=== PATIENT | male | born 1995 | race Caucasian/White ===

== ENCOUNTER 2016-06-24 13:28 | Emergency (ER) | payer OTHER ==
--- NOTE | 2016-06-24 14:18 | ED ---
General Adult HPI - General Chief complaint: GI Bleed Stated complaint: blood in stool-sent by Time Seen by Provider: 06/24/16 13:56 Source: patient, family, RN notes reviewed, old records reviewed Mode of arrival: ambulatory Limitations: no limitations - History of Present Illness Initial comments: Chief complaint and history of present illness this is a 20-year-old male here with his mother. Patient reports that after having a bowel movement he noticed was blood on the toilet paper. When asked she does report that a bowel movement before was somewhat uncomfortable. He's never had hemorrhoids or fissures in the past. He has had gastric ulcers 2 years ago cured with PPIs. For the past month every other day during the week he has had to take several Tums which relieved his GERD type symptoms. Not noticed any change in stool color. - Related Data Home Medications Medication Instructions Recorded Confirmed Albuterol Inhaler [Ventolin Hfa 2 puff INHALATION RT-Q4H PRN 02/23/14 06/24/16 Inhaler] Cetirizine HCl [Zyrtec] 10 mg PO DAILY 02/23/14 06/24/16 Montelukast [Singulair] 10 mg PO DAILY 02/23/14 06/24/16 Echinacea 400 mg PO DAILY 06/24/16 06/24/16 Gabapentin [Neurontin] 300 mg PO HS 06/24/16 06/24/16 Previous Rx's Medication Instructions Recorded Famotidine [Pepcid] 20 mg PO DAILY #30 tablet 06/24/16 Allergies Allergy/AdvReac Type Severity Reaction Status Date / Time No Known Allergies Allergy Verified 06/24/16 14:23 Review of Systems ROS Statement: Those systems with pertinent positive or pertinent negative responses have been documented in the HPI. Review of systems. No visual acuity changes or headache no stiff neck or chest pain no shortness of breath no complaints or problems. No scleral problems. No neuro deficits. Chief complaint today is noticing blood on the toilet paper after he wiped. He wiped several times and each time there is little bit of blood. All systems were otherwise reviewed. Past medical problems significant for asthma, GERD,. Surgeries tonsils and adenoids, appendectomy and cholecystectomy. The patient's lost a large amount of weight over the past year or more. States combination of low working harder in eating properly. Patient's family heart disease. No cancers. ALLERGIES none. Patient smokes occasional cigarettes encouraged to stop. Denies alcohol use ROS Other: All systems not noted in ROS Statement are negative. Past Medical History Past Medical History: Asthma, GERD/Reflux Additional Past Medical History / Comment(s): ABDOMINAL PAIN, HX OF 60LB WT LOSS History of Any Multi-Drug Resistant Organisms: None Reported Past Surgical History: Adenoidectomy, Appendectomy, Cholecystectomy, Tonsillectomy Past Anesthesia/Blood Transfusion Reactions: No Reported Reaction Past Psychological History: No Psychological Hx Reported Smoking Status: Light tobacco smoker Past Alcohol Use History: None Reported Past Drug Use History: None Reported - Past Family History Father Family Medical History: Myocardial Infarction ([place]) General Exam - General Exam Comments Initial Comments: General: The patient is awake and alert, in no distress, and does not appear acutely ill. Chief complaint of noticing blood on the toilet paper after he wiped. Vital signs show temperature 97.8 pulse 77 respiratory rate 16, pulse ox 99% room air blood pressure 125/69. Mildly elevated systolic noted. The patient is in emergency room under mild stress. Eye: Pupils are equal, round and reactive to light, extra-ocular movements are intact ; there is normal conjunctiva bilaterally. No signs of icterus. Ears, nose, mouth and throat: There are moist mucous membranes and no oral lesions. Neck: The neck is supple, there is no tenderness , no anterior cervical lymphadenopathy. Cardiovascular: There is a regular rate and rhythm. No murmur, rub or gallop is appreciated. Respiratory: Lungs are clear to auscultation, respirations are non-labored, breath sounds are equal. No wheezes, stridor, rales, or rhonchi. Gastrointestinal: Soft, non-distended, non-tender abdomen without masses or organomegaly noted. There is no rebound or guarding present. No CVA tenderness. Bowel sounds are unremarkable. Rectal examination done possible small internal hemorrhoid. Possible small fissure appreciated but difficult to assess. Rectal exam no masses palpable within the length of the digital exam. Stool color brown. Bedside guaiac negative. Back: There is no tenderness to palpation in the midline. There is no obvious deformity. No rashes noted. Musculoskeletal: Normal ROM, no tenderness, There is no calf tenderness or swelling. Neurological: No evidence of a neurological deficit or complaints thereof. Skin: Skin is warm and dry and no rashes or lesions are noted. Limitations: no limitations Course Vital Signs 06/24/16 13:36 Temperature 97.8 F Pulse Rate 77 Respiratory 16 Rate Blood Pressure 125/69 O2 Sat by Pulse 99 Oximetry Medical Decision Making - Medical Decision Making Medical decision-making the patient's white count 6.7 hemoglobin 14 hematocrit of 43. Potassium is 3.8 with a BUN 14 creatinine 0.70 with a GFR greater than 60. Glucose 74. Occult blood negative. I discussed with the patient possibility of a small hemorrhoid bleeding or a fissure. Patient be referred back to his family physician and Dr. Roberson his board saw runner for the evaluation. Loop of the fact the patient is having recurrent GERD type symptoms he will be placed on Pepcid daily for the next 6 weeks. If he has increased bleeding his return emergency room otherwise follow- up with the board saw runner. - Lab Data Result diagrams: 06/24/16 14:34 06/24/16 14:34 Lab Results 06/24/16 06/24/16 06/24/16 Range/Units 14:00 14:34 14:34 WBC 6.7 (4.0-11.0) k/uL RBC 4.93 (4.30-5.90) m/uL Hgb 14.3 (13.0-17.5) gm/dL Hct 43.4 (39.0-53.0) % MCV 88.0 (80.0-100.0) fL MCH 28.9 (25.0-35.0) pg MCHC 32.9 (31.0-37.0) g/dL RDW 13.1 (11.5-15.5) % Plt Count 259 (150-450) k/uL Neutrophils % 50 % Lymphocytes % 36 % Monocytes % 4 % Eosinophils % 8 % Basophils % 1 % Neutrophils # 3.4 (1.3-7.7) k/uL Lymphocytes # 2.4 (1.0-4.8) k/uL Monocytes # 0.3 (0-1.0) k/uL Eosinophils # 0.5 (0-0.7) k/uL Basophils # 0.0 (0-0.2) k/uL Sodium 142 (137-145) mmol/L Potassium 3.8 (3.5-5.1) mmol/L Chloride 104 (98-107) mmol/L Carbon Dioxide 28 (22-30) mmol/L Anion Gap 10 mmol/L BUN 14 (9-20) mg/dL Creatinine 0.72 (0.66-1.25) mg/dL Est GFR (MDRD) Af Amer >60 (>60 ml/min/1.73 sqM) Est GFR (MDRD) Non-Af >60 (>60 ml/min/1.73 sqM) Glucose 74 (74-99) mg/dL Calcium 9.5 (8.4-10.2) mg/dL Total Bilirubin 0.5 (0.2-1.3) mg/dL AST 20 (17-59) U/L ALT 33 (21-72) U/L Alkaline Phosphatase 57 (38-126) U/L Total Protein 7.1 (6.3-8.2) g/dL Albumin 4.3 (3.5-5.0) g/dL Stool Occult Blood Negative (Negative) Disposition Clinical Impression: Fissure, anal Disposition: HOME SELF-CARE Condition: Fair Instructions: Anal Fissure (ED) Additional Instructions: Use hemorrhoidal creams while waiting to see her family doctor and board saw runner. Increase water intake. Prescriptions: Famotidine [Pepcid] 20 mg PO DAILY #30 tablet Time of Disposition: 15:29
[2016-06-24 14:53] LABS: Basophils % (A) 1 %; CH 29.1; CHCM 33.3; Eosinophils # (A) 0.5 k/uL (0-0.7); Eosinophils % (A) 8 %; HCT 43.4 % (39.0-53.0); HDW 2.44; HGB 14.3 gm/dL (13.0-17.5); Luc # (Auto) 0.12; Luc % (Auto) 2; Lymphocytes # (A) 2.4 k/uL (1.0-4.8); Lymphocytes % (A) 36 %; MCH 28.9 pg (25.0-35.0); MCHC 32.9 g/dL (31.0-37.0); Mean Platelet Volume 6.6; Monocytes # (A) 0.3 k/uL (0-1.0); Monocytes % (A) 4 %; Neutrophils # (A) 3.4 k/uL (1.3-7.7); Neutrophils % (A) 50 %; RBC 4.93 m/uL (4.30-5.90); RDW 13.1 % (11.5-15.5); WBC 6.7 k/uL (4.0-11.0); WBC (Perox) 6.84
[2016-06-24 14:56] LABS: ALT 33 U/L (21-72); AST 20 U/L (17-59); Alkaline Phosphatase 57 U/L (38-126); Anion Gap 10 mmol/L; Blood Urea Nitrogen 14 mg/dL (9-20); Calcium 9.5 mg/dL (8.4-10.2); Carbon Dioxide 28 mmol/L (22-30); Chloride 104 mmol/L (98-107); Glucose 74 mg/dL (74-99); Non-African American GFR(MDRD) >60 (>60 ml/min/1.73 sqM); Potassium 3.8 mmol/L (3.5-5.1); Sodium 142 mmol/L (137-145); Total Bilirubin 0.5 mg/dL (0.2-1.3); Total Protein 7.1 g/dL (6.3-8.2)
[2016-06-24 15:49] VITALS: BP 147/78; PULSE 92; RESP 18; TEMP 97.4
== END 2016-06-24 15:49 | disposition home or self-care (01) ==
LOC: EC 13:28
DX: K60.2 Anal fissure, unspecified (principal); J45.909 Unspecified asthma, uncomplicated; F17.210 Nicotine dependence, cigarettes, uncomplicated; Z79.899 Other long term (current) drug therapy
CPT/HCPCS: 36415; 80053; 82272; 85025; 99284

== ENCOUNTER → 2016-12-02 | Outpatient (CLI) | payer OTHER ==
--- NOTE | 2016-12-02 17:21 | XR ---
EXAMINATION TYPE: XR hand complete RT DATE OF EXAM: 12/02/2016 COMPARISON: 09/17/2013 HISTORY: Pain after punching a wall TECHNIQUE: 3 views FINDINGS: There is a transverse fracture of the neck of the fifth metacarpal head with some mild post erior angulation at the fracture site. There is no dislocation. IMPRESSION: Acute slightly angulated fracture of the distal fifth metacarpal.
== END ==
LOC: RADXRMAIN 16:39
PROVIDERS: ATTEND Pediatrics
DX: S62.336A Displaced fracture of neck of fifth metacarpal bone, right hand, initial encounter for closed fracture (principal)

== ENCOUNTER 2019-06-19 06:42 | Emergency (ER) | payer OTHER ==
[2019-06-19 07:01] VITALS: BP 129/81; PULSE 78; RESP 16; TEMP 97.9
[2019-06-19] MEDS ORDERED: IBUPROFEN 600 MG TAB PO STA (07:10)
[2019-06-19] MEDS ORDERED: CYCLOBENZAPRINE 10 MG TAB PO STA (07:10)
[2019-06-19] MEDS ORDERED: ACET/COD 300 MG/30 MG STARTER PACK 6 TAB BTL PO STA (07:11)
--- NOTE | 2019-06-19 07:11 | ED ---
Back Pain HPI - General Chief Complaint: Back Pain/Injury Stated Complaint: [facility] Back Pain Time Seen by Provider: 06/19/19 06:56 Source: patient, RN notes reviewed Limitations: no limitations - History of Present Illness Initial Comments: This a 23-year-old male presents emergency Department with chief complaint of mid to low back pain. Patient states that he was lifting a box approximately 4050 pounds in weight states he twisted to left knee has mid to right-sided back pain. Patient states he did inject this in the past in which she had a muscular strain. Patient states feels very similar. He denies any bowel, bladder and Kienitz retention. Denies any lower extremity paresthesias, pain or saddle anesthesias. He has no dysuria no nausea vomiting. Patient did take Tylenol prior arrival. - Related Data Home Medications Medication Instructions Recorded Confirmed Albuterol Inhaler [Ventolin Hfa 2 puff INHALATION RT-Q4H PRN 02/23/14 06/24/16 Inhaler] Cetirizine HCl [Zyrtec] 10 mg PO DAILY 02/23/14 06/24/16 Montelukast [Singulair] 10 mg PO DAILY 02/23/14 06/24/16 Echinacea 400 mg PO DAILY 06/24/16 06/24/16 Gabapentin [Neurontin] 300 mg PO HS 06/24/16 06/24/16 Previous Rx's Medication Instructions Recorded Famotidine [Pepcid] 20 mg PO DAILY #30 tablet 06/24/16 Cyclobenzaprine [Flexeril] 10 mg PO TID PRN #15 tab 06/19/19 Ibuprofen [Motrin] 600 mg PO Q8HR PRN #30 tab 06/19/19 Allergies Allergy/AdvReac Type Severity Reaction Status Date / Time No Known Allergies Allergy Verified 06/19/19 07:00 Review of Systems ROS Statement: Those systems with pertinent positive or pertinent negative responses have been documented in the HPI. ROS Other: All systems not noted in ROS Statement are negative. Past Medical History Past Medical History: Asthma, GERD/Reflux Additional Past Medical History / Comment(s): ABDOMINAL PAIN, HX OF 60LB WT LOSS History of Any Multi-Drug Resistant Organisms: None Reported Past Surgical History: Adenoidectomy, Appendectomy, Cholecystectomy, Tonsillectomy Past Anesthesia/Blood Transfusion Reactions: No Reported Reaction Past Psychological History: No Psychological Hx Reported Smoking Status: Current every day smoker Past Alcohol Use History: None Reported Past Drug Use History: None Reported - Past Family History Father Family Medical History: Myocardial Infarction ([place]) General Exam Limitations: no limitations General appearance: alert, in no apparent distress Head exam: Present: atraumatic, normocephalic, normal inspection Eye exam: Present: normal appearance, PERRL, EOMI. Absent: scleral icterus, conjunctival injection, periorbital swelling ENT exam: Present: normal exam, normal oropharynx, mucous membranes moist Neck exam: Present: normal inspection, full ROM. Absent: tenderness, meningismus, lymphadenopathy Respiratory exam: Present: normal lung sounds bilaterally. Absent: respiratory distress, wheezes, rales, rhonchi, stridor Cardiovascular Exam: Present: regular rate, normal rhythm, normal heart sounds. Absent: systolic murmur, diastolic murmur, rubs, gallop, clicks GI/Abdominal exam: Present: soft, normal bowel sounds. Absent: distended, tenderness, guarding, rebound, rigid Extremities exam: Present: normal inspection, full ROM, normal capillary refill, other (Lower extremity strength equal bilaterally, equal color and equal warmth). Absent: tenderness, pedal edema, joint swelling, calf tenderness Back exam: Present: full ROM (Pain with range of motion), tenderness, paraspinal tenderness. Absent: vertebral tenderness Neurological exam: Present: reflexes normal. Absent: motor sensory deficit Course Vital Signs 06/19/19 06:56 Temperature 97.9 F Pulse Rate 78 Respiratory 16 Rate Blood Pressure 129/81 O2 Sat by Pulse 98 Oximetry Medical Decision Making - Medical Decision Making Patient's has no red flag symptoms, patient has a thoracic/lumbar strain. Patient will follow up with [facility]. Patient is discharged in stable condition return parameters were discussed. Disposition Clinical Impression: Mechanical back pain, Back strain Disposition: HOME SELF-CARE Condition: Stable Instructions (If sedation given, give patient instructions): Acute Low Back Pain (ED) Additional Instructions: Please return to the Emergency Department if symptoms worsen or any other concerns. Prescriptions: Cyclobenzaprine [Flexeril] 10 mg PO TID PRN #15 tab PRN Reason: Muscle Spasm Ibuprofen [Motrin] 600 mg PO Q8HR PRN #30 tab PRN Reason: Pain Is patient prescribed a controlled substance at d/c from ED?: No Referrals: Lincoln Champagne MD [Primary Care Provider] - 1-2 days Time of Disposition: 07:11
== END 2019-06-19 07:30 | disposition home or self-care (01) ==
LOC: EC 06:42
DX: S39.012A Strain of muscle, fascia and tendon of lower back, initial encounter (principal); S29.012A Strain of muscle and tendon of back wall of thorax, initial encounter; J45.909 Unspecified asthma, uncomplicated; F17.200 Nicotine dependence, unspecified, uncomplicated; Z79.899 Other long term (current) drug therapy; X50.0XXA Overexertion from strenuous movement or load, initial encounter; Y92.69 Other specified industrial and construction area as the place of occurrence of the external cause; Y99.0 Civilian activity done for income or pay
CPT/HCPCS: 99283

== ENCOUNTER 2020-05-17 10:29 | Emergency (ER) | payer OTHER ==
[2020-05-17 10:41] VITALS: BP 136/87; PULSE 84; RESP 18; TEMP 98.5
--- NOTE | 2020-05-17 11:43 | CT ---
EXAMINATION TYPE: CT brain kat wo con DATE OF EXAM: 05/17/2020 COMPARISON: None HISTORY: fall down stairs, nose contusion, headache, dizziness CT DLP: 1321.7 mGycm, Automated exposure control for dose reduction was used. CONTRAST: Patient injected with 0 mL of Isovue 300. CT of the brain is performed utilizing 3 mm thick sections through the posterior fossa and 3 mm thick sections through the remaining calvarium. Study is performed within 24 hours of arrival to the hospital. No abnormal hyperdensity is present to suggest an acute intracranial hemorrhage. No mass lesion is evident. No acute infarcts are evident. Ventricles and sulci are appropriate for the patient age. Paranasal sinuses and mastoid air cells within the [id number] are clear. IMPRESSIONS: 1. Normal CT brain. CT cervical spine. COMPARISON: None CT of the cervical spine is performed in the axial plane at 2 mm thick sections. Reconstructed image s in the coronal, and sagittal plane are reviewed on the computer. No acute fractures are evident. Vertebral body alignment is normal. Disc heights are preserved. Vertebral body heights are preserved. No spinal canal stenosis is evident. No neural foraminal stenosis is evident. IMPRESSIONS: 1. Normal CT cervical spine.
--- NOTE | 2020-05-17 11:45 | CT ---
EXAMINATION TYPE: CT facial bones wo con DATE OF EXAM: 05/17/2020 COMPARISON: None HISTORY: fall down stairs, nose contusion CT DLP: 805 mGycm Automated exposure control for dose reduction was used. TECHNIQUE: Axial images 2 mm thick sections. Reconstructed images in the coronal plane FINDINGS: Mandible and maxilla appear intact. Maxillary spine is intact. Paranasal sinuses within the field-of- view are clear. Greater wings of the sphenoid and zygomatic arches are intact. Left septal deviation and a left septal spur is noted. IMPRESSION: NO ACUTE OSSEOUS ABNORMALITY FACIAL BONES. SOME SOFT TISSUE SWELLING MAY BE OVER THE RIGHT CHEEK ALEAH ON.
[2020-05-17] MEDS ORDERED: ACET/COD 300 MG/30 MG STARTER PACK 6 TAB BTL PO STA (12:05)
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
== END 2020-05-17 12:15 | disposition home or self-care (01) ==
LOC: EC 10:29
DX: S06.0X9A Concussion with loss of consciousness of unspecified duration, initial encounter (principal); S00.83XA Contusion of other part of head, initial encounter; J34.0 Abscess, furuncle and carbuncle of nose; J45.909 Unspecified asthma, uncomplicated; Z79.899 Other long term (current) drug therapy; Z87.891 Personal history of nicotine dependence; W10.9XXA Fall (on) (from) unspecified stairs and steps, initial encounter; Y92.009 Unspecified place in unspecified non-institutional (private) residence as the place of occurrence of the external cause
CPT/HCPCS: 70450; 70486; 72125; 99283

== ENCOUNTER 2020-05-18 20:51 | Inpatient (IN) | payer OTHER ==
[2020-05-18] MEDS ORDERED: KETOROLAC 15 MG/ML 1 ML VIAL IVP STA (21:33)
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
[2020-05-18] MEDS ORDERED: ONDANSETRON 4 MG/2 ML VIAL IVP STA (21:44)
[2020-05-18 22:17] LABS: Basophils % (A) 0 %; Eosinophils # (A) 0.4 k/uL (0-0.7); Eosinophils % (A) 3 %; HCT 46.5 % (39.0-53.0); HGB 15.4 gm/dL (13.0-17.5); Lymphocytes # (A) 1.4 k/uL (1.0-4.8); Lymphocytes % (A) 10 %; MCH 29.8 pg (25.0-35.0); MCHC 33.1 g/dL (31.0-37.0); MCV 90.2 fL (80.0-100.0); Mean Platelet Volume 7.9; Monocytes # (A) 0.9 k/uL (0-1.0); Monocytes % (A) 6 %; Neutrophils # (A) 11.3 k/uL (1.3-7.7); Neutrophils % (A) 80 %; Platelet Count 294 k/uL (150-450); RBC 5.16 m/uL (4.30-5.90); RDW 13.3 % (11.5-15.5); WBC 14.1 k/uL (3.8-10.6)
[2020-05-18 22:29] LABS: ALT 23 U/L (4-49); AST 19 U/L (17-59); African American GFR (CKD) >90 (>60 ml/min/1.73 sqM); Alkaline Phosphatase 89 U/L (38-126); Anion Gap 9 mmol/L; Blood Urea Nitrogen 9 mg/dL (9-20); C Reactive Protein 54.5 mg/L (<10.0); Calcium 9.3 mg/dL (8.4-10.2); Carbon Dioxide 23 mmol/L (22-30); Chloride 104 mmol/L (98-107); Glucose 108 mg/dL (74-99); Non-African American GFR(CKD) >90 (>60 ml/min/1.73 sqM); Potassium 3.7 mmol/L (3.5-5.1); Sodium 136 mmol/L (137-145); Total Bilirubin 0.5 mg/dL (0.2-1.3)
[2020-05-18] MEDS ORDERED: RX INFO: IV CONTRAST WAS GIVEN 1 EACH MISC MISCELLANE PRN (23:02)
[2020-05-18 23:14] LABS: Erythrocyte Sedimentation Rate 11 mm/hr (0-15)
--- NOTE | 2020-05-18 23:42 | CT ---
EXAMINATION TYPE: CT brain w con DATE OF EXAM: 05/18/2020 COMPARISON: Yesterday HISTORY: Possible venous thrombosis. Headache. Pain and swelling. CT DLP: mGycm Automated exposure control for dose reduction was used. CONTRAST: The contrast was Isovue 100 mL. FINDINGS: Ventricles and sulci appear normal. There is no mass effect nor midline shift. There is no sign of in tracranial hemorrhage. There is normal enhancement of the venous sinuses. There is no evidence of sin us thrombosis. There is no pathologic enhancement. Skull base is intact. There is contrast opacificat ion of the anterior middle and posterior cerebral arteries. There is arterial flow in the vertebrobas ilar artery system. There is no evidence of cerebral edema. IMPRESSION: Normal exam. No pathologic enhancement. No evidence of venous sinus thrombosis.
[2020-05-19] MEDS ORDERED: NALOXONE 0.4 MG/ML 1 ML VIAL IV PRN (00:01)
[2020-05-19] MEDS ORDERED: MORPHINE SULFATE 4 MG/ML SYRINGE IV PRN (00:01)
[2020-05-19] MEDS ORDERED: VANCOMYCIN IV PER PHARMACY 1 EACH MISC MISCELLANE PRN (00:02)
[2020-05-19] MEDS ORDERED: VANCOMYCIN 2,000 MG in SODIUM CHLORIDE 0.9% 500 ML 500 ML IVPB ONE (01:00)
--- NOTE | 2020-05-19 01:09 | CT ---
EXAM: CT Thoracic Spine Without Intravenous Contrast CLINICAL HISTORY: ITS.REASON CT Reason: pain TECHNIQUE: Axial computed tomography images of the thoracic spine without intravenous contrast. CTDI is 24.97 mGy and DLP is 1125.2 mGy-cm. This CT exam was performed using one or more of the following dose reduction techniques: automated exposure control, adjustment of the mA and/or kV according to patient size, and/or use of iterative reconstruction technique. COMPARISON: No relevant prior studies available. FINDINGS: Vertebrae: Unremarkable. No acute fracture. Discs/spinal canal/neural foramina: No acute findings. No spinal canal stenosis. Soft tissues: Unremarkable. Lungs: Patchy small nodular and ground-glass opacities in the lungs bilaterally. IMPRESSION: 1. Patchy small nodular and ground-glass opacities in the lungs bilaterally concerning for infection, possibly viral pneumonia. 2. No acute fracture or subluxation..
[2020-05-19] MEDS: DEXAMETHASONE SOD PHOSPHATE 10 MG/ML 1 ML VIAL IV ONE ×2 (01:32→01:45)
[2020-05-19] MEDS ORDERED: MORPHINE SULFATE 4 MG/ML SYRINGE IVP PRN (01:49)
[2020-05-19] MEDS ORDERED: ONDANSETRON 4 MG/2 ML VIAL IVP PRN (01:49)
[2020-05-19] MEDS ORDERED: MORPHINE SULFATE 4 MG/ML SYRINGE IVP STA (01:49)
[2020-05-19] MEDS: IBUPROFEN 400 MG TAB PO PRN ×3 (02:03→16:22)
[2020-05-19] MEDS: VANCOMYCIN 1,750 MG in SODIUM CHLORIDE 0.9% 500 ML 500 ML IVPB SCH ×2 (11:33→18:51)
[2020-05-19] MEDS: MONTELUKAST 10 MG TAB PO SCH (12:06)
[2020-05-19] MEDS: LORATADINE 10 MG TAB PO SCH (12:06)
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
[2020-05-19] MEDS: BACITRACIN ZINC 500 UNIT/GM OINT 28.4 GM TUBE TOPICAL SCH ×2 (16:54→20:37)
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
[2020-05-19] MEDS: ACETAMINOPHEN TAB 325 MG TAB PO PRN (22:37)
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
[2020-05-20] MEDS: NAPROXEN 250 MG TAB PO SCH ×4 (01:49→21:14)
[2020-05-20] MEDS: VANCOMYCIN 1,750 MG in SODIUM CHLORIDE 0.9% 500 ML 500 ML IVPB SCH ×3 (02:24→18:11)
[2020-05-20] MEDS: ACETAMINOPHEN TAB 325 MG TAB PO PRN (06:25)
[2020-05-20] MEDS ORDERED: VANCOMYCIN TROUGH DUE 1 EACH MISC MISCELLANE ONE (09:00)
[2020-05-20 09:32] LABS: African American GFR (CKD) >90 (>60 ml/min/1.73 sqM); Non-African American GFR(CKD) >90 (>60 ml/min/1.73 sqM)
[2020-05-20] MEDS: LORATADINE 10 MG TAB PO SCH (09:38)
[2020-05-20] MEDS: MONTELUKAST 10 MG TAB PO SCH (09:38)
[2020-05-20] MEDS: BACITRACIN ZINC 500 UNIT/GM OINT 28.4 GM TUBE TOPICAL SCH ×2 (09:38→21:11)
--- NOTE | 2020-05-20 11:55 | P.PN ---
Progress Note - Text Progress Note Date: 05/20/20 The patient states his facial pain has improved. He still has significant swelling of his left eye and nose. Resolving facial cellulitis after trauma. Facial he received IV advised. No surgical intervention is planned.
--- NOTE | 2020-05-20 16:08 | CT ---
EXAM: CT brain wo/w con CLINICAL HISTORY: Head injury/pain status post fall 3 days ago. Periorbital swelling and headache. COMPARISON: 05/18/2020. TECHNIQUE: Axial images of the brain were obtained before and after the use of 100 mL Isovue 300 intr avenous contrast. Coronal and sagittal reformats were generated and reviewed. Imaging dose reduction technique were utilized per protocol. FINDINGS: There is no evidence for intracranial hemorrhage, mass effect, midline shift or acute large vessel te rritory infarct. The white matter is preserved. There is no evidence of abnormal enhancement, mass or fluid collection. The visualized major dural venous sinuses are patent. Ventricular size and configuration is within normal limits for degree of parenchymal volume. The paranasal sinuses are clear. The mastoid air cells are clear. No evidence for calvarial fracture. IMPRESSION: Unremarkable CT head with and without contrast.
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
--- NOTE | 2020-05-20 22:14 | PN ---
PROGRESS NOTE DATE OF SERVICE: 05/20/2020 REASON FOR FOLLOWUP: Nasal/facial cellulitis and bacteremia. INTERVAL HISTORY: The patient's clinical course complicated as the patient has developed bacteremia, Staph aureus, presumptive MRSA. Local culture was also showing presumptive MRSA. The swelling and redness of the neck is slightly decreased. No further drainage. Denies having any chest pain, shortness of breath or cough. No nausea, no vomiting. No abdominal pain, no diarrhea. PHYSICAL EXAMINATION: Blood pressure 136/70 with a pulse of 64, temperature 97.7. He is 97% on room air. General description is a middle-aged male up in the bed in no distress. HEENT examination: The nose redness and swelling is slightly decreased. No drainage. LUNGS: Unlabored breathing. Clear to auscultation anteriorly. HEART: S1, S2. Regular rate and rhythm. ABDOMEN: Soft, no tenderness. LABS: Creatinine 0.81. Blood culture with Staph aureus. Local culture with presumptive MRSA. DIAGNOSTIC IMPRESSION AND PLAN: Patient with nasal abscess and facial cellulitis. Patient clinical course complicated by development of the bacteremia. Blood cultures will be repeated to document clearance of bacteremia. The patient will need a PICC line for outpatient IV antibiotic therapy. Continue supportive care. MMODL / IJN: [id number] /
[2020-05-21] MEDS: VANCOMYCIN 1,750 MG in SODIUM CHLORIDE 0.9% 500 ML 500 ML IVPB SCH ×3 (01:51→17:55)
[2020-05-21 08:19] LABS: Basophils # (A) 0.1 k/uL (0-0.2); Basophils % (A) 1 %; Eosinophils # (A) 0.5 k/uL (0-0.7); Eosinophils % (A) 5 %; HCT 44.5 % (39.0-53.0); HGB 14.7 gm/dL (13.0-17.5); Lymphocytes # (A) 1.6 k/uL (1.0-4.8); Lymphocytes % (A) 18 %; MCH 30.1 pg (25.0-35.0); MCV 91.4 fL (80.0-100.0); Monocytes # (A) 0.7 k/uL (0-1.0); Monocytes % (A) 8 %; Neutrophils % (A) 67 %; Platelet Count 296 k/uL (150-450); RBC 4.87 m/uL (4.30-5.90); RDW 12.8 % (11.5-15.5)
[2020-05-21 08:28] LABS: ALT 42 U/L (4-49); AST 24 U/L (17-59); African American GFR (CKD) >90 (>60 ml/min/1.73 sqM); Albumin 3.3 g/dL (3.5-5.0); Alkaline Phosphatase 81 U/L (38-126); Anion Gap 4 mmol/L; Blood Urea Nitrogen 13 mg/dL (9-20); C Reactive Protein 29.6 mg/L (<10.0); Carbon Dioxide 25 mmol/L (22-30); Chloride 108 mmol/L (98-107); Glucose 107 mg/dL (74-99); Non-African American GFR(CKD) >90 (>60 ml/min/1.73 sqM); Potassium 4.1 mmol/L (3.5-5.1); Sodium 137 mmol/L (137-145); Total Bilirubin 0.4 mg/dL (0.2-1.3); Total Protein 6.1 g/dL (6.3-8.2)
[2020-05-21] MEDS: LORATADINE 10 MG TAB PO SCH (09:40)
[2020-05-21] MEDS: NAPROXEN 250 MG TAB PO SCH ×3 (09:40→21:09)
[2020-05-21] MEDS: MONTELUKAST 10 MG TAB PO SCH (09:40)
[2020-05-21] MEDS: BACITRACIN ZINC 500 UNIT/GM OINT 28.4 GM TUBE TOPICAL SCH ×2 (09:49→21:09)
--- NOTE | 2020-05-21 11:23 | P.PN ---
Progress Note - Text Progress Note Date: 05/21/20 The patient's facial cellulitis has improved. There is decreased swelling around his left eye. His left eye is opening. Patient has improving colitis. We'll continue IV antibiotic.
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
[2020-05-21 21:14] VITALS: RESP 18
--- NOTE | 2020-05-21 23:27 | PN ---
PROGRESS NOTE DATE OF SERVICE: 05/21/2020 REASON FOR FOLLOWUP: Nasal cellulitis with MRSA infection and bacteremia. INTERVAL HISTORY: The patient is currently afebrile. The patient is breathing comfortably. The patient's overall pain and swelling to the nasal area has improved. No drainage. Denies any chest pain, shortness of breath or cough. No abdominal pain or diarrhea. PHYSICAL EXAMINATION: Blood pressure 137/85, pulse of 64, temperature 98.2. He is 99% on room air. General description is a middle-aged male up in the chair in no distress. HEENT EXAMINATION: swelling or headaches. LUNGS: Unlabored breathing. Clear to auscultation anteriorly. HEART: S1, S2. Regular rate and rhythm. ABDOMEN: Soft, no tenderness. LABS: Hemoglobin is 14.7, white count 9.0. BUN of 13, creatinine 0.72. DIAGNOSTIC IMPRESSION AND PLAN: Patient with MRSA nasal abscess and cellulitis with MRSA bacteremia. Patient is covered with vancomycin. Blood culture repeat has been done. Will wait for them to be negative before placing a PICC line for outpatient IV antibiotic therapy. Continue with supportive care. MMODL / IJN: [id number] /
[2020-05-22] MEDS: VANCOMYCIN 1,750 MG in SODIUM CHLORIDE 0.9% 500 ML 500 ML IVPB SCH ×2 (02:01→10:33)
[2020-05-22] MEDS: LORATADINE 10 MG TAB PO SCH (08:49)
[2020-05-22] MEDS: MONTELUKAST 10 MG TAB PO SCH (08:49)
[2020-05-22] MEDS: NAPROXEN 250 MG TAB PO SCH (08:49)
[2020-05-22] MEDS: BACITRACIN ZINC 500 UNIT/GM OINT 28.4 GM TUBE TOPICAL SCH (08:49)
[2020-05-22 08:53] LABS: Basophils # (A) 0.1 k/uL (0-0.2); Basophils % (A) 1 %; Eosinophils # (A) 0.7 k/uL (0-0.7); Eosinophils % (A) 8 %; HCT 43.7 % (39.0-53.0); HGB 14.7 gm/dL (13.0-17.5); Lymphocytes # (A) 1.7 k/uL (1.0-4.8); Lymphocytes % (A) 19 %; MCH 30.5 pg (25.0-35.0); MCHC 33.5 g/dL (31.0-37.0); MCV 91.1 fL (80.0-100.0); Mean Platelet Volume 7.1; Monocytes # (A) 0.6 k/uL (0-1.0); Monocytes % (A) 7 %; Neutrophils # (A) 5.7 k/uL (1.3-7.7); Neutrophils % (A) 64 %; Platelet Count 350 k/uL (150-450); RDW 12.7 % (11.5-15.5); WBC 8.9 k/uL (3.8-10.6)
[2020-05-22 09:04] LABS: African American GFR (CKD) >90 (>60 ml/min/1.73 sqM); Non-African American GFR(CKD) >90 (>60 ml/min/1.73 sqM)
[2020-05-22 09:34] VITALS: BP 123/65; PULSE 72; TEMP 97.1
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
[2020-05-22] MEDS ORDERED: MUPIROCIN 2% OINT 22 GM TUBE TOPICAL SCH (13:00)
[2020-05-22] MEDS ORDERED: VANCOMYCIN TROUGH DUE 1 EACH MISC MISCELLANE ONE (17:00)
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
== END 2020-05-22 15:10 | disposition home or self-care (01) | DRG 872 ==
LOC: EC 20:51 → 1SOBS 05-19 00:01 → OBSVTOIN 05-20 13:00
PROVIDERS: ADMIT Hospitalist; ATTEND Hospitalist
PROC: 05HC33Z Insertion of Infusion Device into Left Basilic Vein, Percutaneous Approach (ICD-10-PCS; principal; 2020-05-22 17:40)
DX: A41.02 Sepsis due to Methicillin resistant Staphylococcus aureus (principal); L03.211 Cellulitis of face; E66.9 Obesity, unspecified; Z20.828 Contact with and (suspected) exposure to other viral communicable diseases; J34.0 Abscess, furuncle and carbuncle of nose; S00.31XA Abrasion of nose, initial encounter; S00.83XA Contusion of other part of head, initial encounter; J45.20 Mild intermittent asthma, uncomplicated; K21.9 Gastro-esophageal reflux disease without esophagitis; Z68.33 Body mass index [BMI] 33.0-33.9, adult; M54.6 Pain in thoracic spine; F17.210 Nicotine dependence, cigarettes, uncomplicated; Z79.899 Other long term (current) drug therapy; Z90.89 Acquired absence of other organs; Z90.49 Acquired absence of other specified parts of digestive tract; Z87.19 Personal history of other diseases of the digestive system; Z86.14 Personal history of Methicillin resistant Staphylococcus aureus infection; W03.XXXA Other fall on same level due to collision with another person, initial encounter; Z82.49 Family history of ischemic heart disease and other diseases of the circulatory system
CPT/HCPCS: 36415; 70460; 70470; 72128; 80053; 80202; 82565; 84145; 85025; 85652; 86140; 87040; 87070; 87077; 87186; 87205; 87635; 96365; 96366; 96367; 96375; 96376; 99285

== ENCOUNTER 2020-10-18 13:09 | Emergency (ER) | payer OTHER ==
[2020-10-18 13:17] VITALS: BP 123/84; PULSE 76; RESP 18; TEMP 98.1
[2020-10-18] MEDS ORDERED: ACETAMINOPHEN TAB 500 MG TAB PO STA (13:36)
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
--- NOTE | 2020-10-18 14:11 | XR ---
EXAMINATION TYPE: XR tibia fibula LT DATE OF EXAM: 10/18/2020 COMPARISON: NONE HISTORY: Pain TECHNIQUE: Two views are submitted. FINDINGS: The osseous structures are intact. The joint spaces are preserved. Soft tissue calcifications are n oted. IMPRESSION: 1. No acute osseous abnormality.
--- NOTE | 2020-10-18 14:12 | XR ---
EXAMINATION TYPE: XR ankle complete bilateral DATE OF EXAM: 10/18/2020 COMPARISON: NONE HISTORY: Pain FINDINGS: Three views of the ankle demonstrate the ankle mortise to be intact and symmetric. The joint spaces are preserved. The osseous structures are intact. IMPRESSION: 1. No definite acute fracture or dislocation, if symptoms persist follow-up study in 7 to 10 days wou ld be suggested.
== END 2020-10-18 15:30 | disposition left against medical advice (07) ==
LOC: EC 13:09
DX: S93.402A Sprain of unspecified ligament of left ankle, initial encounter (principal); S93.401A Sprain of unspecified ligament of right ankle, initial encounter; J45.909 Unspecified asthma, uncomplicated; W18.30XA Fall on same level, unspecified, initial encounter; Y92.89 Other specified places as the place of occurrence of the external cause; Z87.891 Personal history of nicotine dependence; Z90.49 Acquired absence of other specified parts of digestive tract; Z90.09 Acquired absence of other part of head and neck
CPT/HCPCS: 99283

== ENCOUNTER → 2022-11-29 | Outpatient (CLI) | payer OTHER ==
--- NOTE | 2022-11-29 14:41 | XR ---
EXAMINATION TYPE: XR elbow complete RT DATE OF EXAM: 11/29/2022 COMPARISON: NONE HISTORY: Pain FINDINGS: Three views of the elbow demonstrate no pathologic joint effusion. The osseous structures are intact . There is no acute fracture or dislocation. IMPRESSION: 1. No acute fracture or dislocation. If symptoms persist follow-up study in 7 to 10 days could be ob tained.
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
--- NOTE | 2022-11-29 14:44 | XR ---
EXAMINATION TYPE: XR shoulder complete RT DATE OF EXAM: 11/29/2022 COMPARISON: NONE HISTORY: Pain TECHNIQUE: Three views are submitted. FINDINGS: The osseous structures are intact. There is no acute fracture or dislocation. The AC joint is maint ained. Lateral and anterolateral remote rib fractures. IMPRESSION: 1. No acute process.
== END | disposition home or self-care (01) ==
LOC: RADXRMAIN 13:47
PROVIDERS: ATTEND Emergency Medicine
DX: S40.011A Contusion of right shoulder, initial encounter (principal)

== ENCOUNTER → 2023-01-06 | Outpatient (CLI) | payer OTHER ==
--- NOTE | 2023-01-06 17:40 | XR ---
EXAMINATION TYPE: XR humerus 2 views RT DATE OF EXAM: 01/06/2023 COMPARISON: NONE HISTORY: 27-year-old male S40.011D there are injury and pain TECHNIQUE: 2 views FINDINGS: No elbow joint effusion. No acute fracture, subluxation, dislocation is seen. IMPRESSION: No acute osseous abnormality seen.
== END | disposition home or self-care (01) ==
LOC: RADXRMAIN 17:01
PROVIDERS: ATTEND Emergency Medicine
DX: S40.011D Contusion of right shoulder, subsequent encounter (principal)